=== PATIENT | female | born 2000 | race Caucasian/White ===

== ENCOUNTER 2023-02-16 11:44 | Emergency (ER) | payer MEDICAID, SELFPAY ==
[2023-02-16 11:48] VITALS: BP 116/66; PULSE 89; RESP 20; TEMP 36.6; O2SAT 98; BMI 21.8
[2023-02-16 12:01] VITALS: O2SAT 98
[2023-02-16] MEDS: TOPIRAMATE 100 MG TABLET 50 MG PO (12:34)
--- NOTE | 2023-02-16 12:36 | PC.NURSE ---
no seizure activity, pt did not bite tongue or urinate on self with seizure prior to ER arrival
--- NOTE | 2023-02-16 12:40 | ED.SEIZURE1 ---
HPI - Seizure General Chief Complaint: Seizure Stated Complaint: seizure Time Seen by Provider: 02/16/23 12:02 Source: patient Mode of arrival: ambulance Limitations: no limitations History of Present Illness HPI Narrative: this patient was brought to us from a care facility where she is in rehab for methamphetamine use. She's had seizure disorder, worked up extensively says she is approximately [age] years old and does have epilepsy. She's been on a number medications in the past but currently she is on Topamax 50 mg one tablet twice a day. She said she forgot to take a dose yesterday. Apparently she just seen her physician at that facility and was recently started today on gabapentin for fibromyalgia but shortly after seeing the physician at a rehab facility she had a short brief seizure. She does not have any complaints at this time. She has not used any illicit drugs recently. No alcohol use. She's not had any other medication adjustments recently and she felt fine. They are increasing at nighttime dose watermelons because she's had some sleep deprivation recently. Related Data Home Medications Medication Instructions Recorded Confirmed cariprazine 1.5 mg capsule 1.5 mg PO DAILY 02/16/23 02/16/23 (Vraylar) docusate sodium 100 mg capsule 100 mg PO BID 02/16/23 02/16/23 (Colace) gabapentin 300 mg capsule 300 mg PO TID 02/16/23 02/16/23 hydroxyzine pamoate 25 mg capsule 25 mg PO Q6H PRN anxiety 02/16/23 02/16/23 (Vistaril) prazosin 1 mg capsule 1 mg PO DAILY 02/16/23 02/16/23 quetiapine 150 mg tablet 150 mg PO DAILY 02/16/23 02/16/23 topiramate 50 mg tablet 50 mg PO BID 02/16/23 02/16/23 Allergies Allergy/AdvReac Type Severity Reaction Status Date / Time lamotrigine [From Lamictal] Allergy Severe Hives Verified 02/16/23 11:48 levetiracetam [From Keppra] AdvReac Severe states Verified 02/16/23 11:48 makes her crazy Exam Narrative Exam Narrative: GENERAL: Well hydrated, appears well, No obvious distress, Awake, Alert, Oriented x 3, Cognition intact HEENT: Normocephalic, No evidence of trauma, injury or infection, airway intact. Conjuntiva normal, no pallor or scleral icterus NECK: Supple, no meningeal irritation, full ROM, non-tender, No JVD. No tenderness to palpation over the cervical spine. CHEST: Symmetrical, no injury, non-tender, RESP: lungs are clear there is no chest wall sternal or clavicular tenderness to palpation. CARDIO: Normal rate and rhythm, No murmur, Rub, or ectopy during auscultation. ABD: NEURO: Neuro at baseline, No motor deficits, CN 2-12 Normal, Mentation inctact.good historian pleasant fully cooperative EXTREMITIES: No edema, good tissue perfusion, does have an abrasion over the right wrist and discomfort. Some limitation of motion. The forearm and elbow are normal. SKIN: No petechiae, purpura, or abnormal bruising, warm, dry, no rash Constitutional Vital Signs, click to edit/add: Last Vital Signs Temp 97.8 F 02/16/23 11:48 Pulse 89 02/16/23 11:48 Resp 20 02/16/23 11:48 BP 116/66 02/16/23 11:48 Pulse Ox 98 02/16/23 12:01 O2 Del Method Room Air 02/16/23 12:01 Course Vital Signs Vital signs: Vital Signs Temperature 97.8 F 02/16/23 11:48 Pulse Rate 89 02/16/23 11:48 Respiratory Rate 20 02/16/23 11:48 Blood Pressure 116/66 02/16/23 11:48 Pulse Oximetry 98 02/16/23 11:48 Oxygen Delivery Method Room Air 02/16/23 11:48 Temperature 97.8 F 02/16/23 11:48 Pulse Rate 89 02/16/23 11:48 Respiratory Rate 20 02/16/23 11:48 Blood Pressure 116/66 02/16/23 11:48 Pulse Oximetry 98 02/16/23 12:01 Oxygen Delivery Method Room Air 02/16/23 12:01 MDM - Seizure MDM Narrative Medical decision making narrative: this patient has had stable epilepsy and forgot a dose for her meds yesterday. We will give her one extra dose of Topamax here in the Emergency Room and then she is to resume her normal meds. She is observed until approximately 1:00 PM Discharge Plan Discharge Chief Complaint: Seizure Clinical Impression: Epileptic seizure Patient Disposition: Home, Self-Care Time of Disposition Decision: 12:43 Prescriptions / Home Meds: No Action gabapentin 300 mg capsule 300 mg PO TID topiramate 50 mg tablet 50 mg PO BID hydroxyzine pamoate [Vistaril] 25 mg capsule 25 mg PO Q6H PRN (Reason: anxiety) quetiapine 150 mg tablet 150 mg PO DAILY docusate sodium [Colace] 100 mg capsule 100 mg PO BID Vraylar 1.5 mg capsule 1.5 mg PO DAILY prazosin 1 mg capsule 1 mg PO DAILY Additional Instructions: resume previous medications Stand Alone Forms: Portal Instructions Referrals: Physician,Non-Staff, MD [Primary Care Provider] - 1 week
== END 2023-02-16 13:06 | disposition home or self-care (01) ==
PROVIDERS: Emergency Provider Emergency Medicine Emergency Medical Services
DX: G40.909 Epilepsy, unspecified, not intractable, without status epilepticus (principal); Z79.899 Other long term (current) drug therapy
CPT/HCPCS: 99283

== ENCOUNTER 2025-02-25 13:35 | Emergency (ER) | payer MEDICAID, SELFPAY ==
--- OUTSIDE RECORDS SUMMARY | 2025-02-10 20:55 | XMS_ITS | Encounter Summary ---
Author Organization [facility] Address [address], [address] [place] [address] Care Team Providers Care Welt Edge Rounder Name Role Phone Unavailable Primary Care Provider Unavailabl e Reason for Visit * Reason Comments Toe Injury Right great toe Encounter Details Date Type Department Care Team ([facility] st Contact Info) Description 02/10/2025 8:55 PM EDT - 02/10/2025 9:42 PM EDT Emergency [facility] Emergency Department [address] [place] [address] [phone] Gifty Hopper MD [address] [place] [address] Avulsion of toenail, initial encounter (Primary Dx) Discharge Disposition: Home or Self Care Social History Tobacco Use Types Packs/Day Years Used Date Smoking Tobacco: Every Day Cigarettes Smokeless Tobacco: Never Alcohol Use Standard Drinks/Week Comments Never 0 (1 standard drink = 0.6 oz pur e alcohol) AUDIT-C Answer Date Recorded Q1: How often do you have a drink containing alcohol? Never 02/02/2025 Q2: How many drinks containi ng alcohol do you have on a typical day when you are drinking? Patient does not drink Q3: How often do you have si x or more drinks on one occasion? Never 02/02/2025 Interpersonal Safety Domain Source: IP Abuse Scr eening Answer Date Recorded Physical abuse Denies 02/10/2025 Verbal abuse Denies 02/10/2025 Emotional abuse Denies 02/10/2025 Financial abuse Denies 02/10/2025 Sexual abuse Denies 02/10/2025 Comments Unknown Sex and Gender Information Value Date Recorded Sex Assigned at Not on file Legal Sex Female 7:15 PM EST Gender Identity Not on file Sexual Orientation Not on file documented as of this encounter Last Filed Vital Signs Vital Sign Reading Time Taken Comments Blood Pressure 127/73 02/10/2025 8:48 PM EDT Pulse 96 02/10/2025 8:48 PM EDT Temperature 36.5 C (97.7 F) 02/10/2025 8:48 PM EDT Respiratory Rate 18 02/10/2025 8:48 PM EDT Oxygen Saturation 99% 02/10/2025 8:48 PM EDT Inhaled Oxygen Concentration - - Weight 64 kg (141 lb) 02/10/2025 8:48 PM EDT Height 149.9 cm (4' 11 ) 02/10/2025 8:48 PM EDT Body Mass Index 28.48 02/10/2025 8:48 PM EDT documented in this encounter Discharge Instructions * Discharge Instructions* Gifty Hopper MD - 02/10/2025 9:28 PM EDT Try to avoid any further trauma to the toe. You may cut the toenail. I highly recommend trying to avoid cutting it too short. Try to keep the nail clean and dry. I do recommend follow-up with podiatry especially if pain worsens. * Attachments The following attachments cannot be sent through Care Everywhere. * Nail Avulsion (Mauritanian) documented in this encounter Medications at Time of Discharge QUEtiapine (SEROQUEL) 100 MG tablet Take 1 tablet by mouth 2 times daily cephALEXin (KEFLEX) 500 MG capsule Take 1 capsule by mouth 2 times daily for 7 days 14 capsule 02/10/2025 02/17/2025 documented as of this encounter Plan of Treatment Not on file documented as of this encounter Visit Diagnoses Diagnosis Avulsion of toenail, initial encounter- Primary documented in this encounter
[2025-02-25 13:39] VITALS: BP 115/87; PULSE 100; TEMP 36.4; O2SAT 99; BMI 31.3
--- OUTSIDE RECORDS SUMMARY | 2025-02-25 13:46 | XMS_ITS | Clinical Summary ---
Author Organization [facility] Address [id number] [address] [place] [address] Care Team Providers Care Networks Computer Consultant Name Role Phone Pcp, Not In System Primary Care Provider Unavail able Allergies Active Allergy Reactions Criticality Noted Date Comments Levetiracetam Other (See Comments) High 04/26/2020 Lamotrigine Hives 10/26/2022 Medications valACYclovir (VALTREX) 1000 mg tabletIndicatio ns:genital herpes simplex Take 1 tablet (1,000 mg total) by mouth in the morning. Indications: genital herpes. Active famotidine (PEPCID) 20 mg tabletIndicatio ns:heartburn Take 2 tablets (40 mg total) by mouth in the morning and 2 tablets (40 mg total) before bedtime. Indications: heartburn. Active lamoTRIgine (LaMICtal) 25 mg tablet Take 2 tablets (50 mg total) by mouth in the morning and 2 tablets (50 mg total) before bedtime. Active hydrOXYzine (VISTARIL) 100 mg capsule Take 1 capsule (100 mg total) by mouth 3 (three) times a day as needed for itching. Active topiramate (TOPAMAX) 50 mg tablet Take 1 tablet (50 mg total) by mouth in the morning and 1 tablet (50 mg total) before bedtime. 60 tablet 3 Active Additional Information Patient not taking.Reported on 09/19/2023 acetaminophen (TylenoL) 325 mg tablet Take 2 tablets (650 mg total) by mouth every 6 (six) hours as needed for pain. 30 tablet 4 Active ibuprofen (MOTRIN) 600 mg tablet Take 1 tablet (600 mg total) by mouth every 6 (six) hours as needed for pain. 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 Never tried to stop previously Tobacco use 04/26/2020 High-risk 04/26/2020 Hx of pre-eclampsia in prior , currentl y 04/26/2020 Pre-eclampsia 04/26/2020 Overview (04/26/2020): 04/24: 24 hour urine protein 436 Hx of chlamydia infection 04/26/2020 Family history of autism 04/26/2020 Overview (04/26/2020): Brother Chronic hepatitis C without hepatic coma 020 Overview (04/26/2020): 12/18/19: Quant 95,701 Drug use affecting in second trimester 12/26/2019 Overview (04/26/2020): + THC Generalized epilepsy 08/30/2014 Overview (04/26/2020): Ms. Billy is treated for her seizure disorder by Dr. Kitchen, at [facility]. Her AED is Oxcarbazepine 150 mg BID. Resolved Problems Problem Noted Date Diagnosed Date Resolved Date History of seizures 04/26/2020 04/26/20 20 Overview (04/26/2020): On Lamotrigine and Oxcarbazepine History of positive hepatitis C 04/26/2020 04/26/2020 Encounters Date Type Department Care Team Description 12/19/2024 2:20 PM EDT Office Visit [facility] [place] [address] [place] [phone] Amber Newell, COURT LIAISON-ASSISTANT THERAPY AIDE Patient left without being seen (Primary Dx) from Last 3 Months Immunizations No known immunizations Family History Medical History Relation Name Comments Hypertension Maternal Grandmother Cancer Neg Hx Diabetes Neg Hx Relation Name Status Comments Maternal Grandmother Social History Tobacco Use Types Packs/Day Years Used Date Smoking Tobacco: Every Day Vaping/E-cigarettes Smokeless Tobacco: Never Tobacco Cessation:Ready to Q uit: Not Asked; Counseling Given: Not Answered Alcohol Use Standard Drinks/Week Comments Not Currently 0 (1 standard drink = 0.6 oz pur e alcohol) Childcare Answer Date Recorded Childcare Unknown 04/24/2020 Employment Answer Date Recorded Employment Unknown 04/24/2020 Hunger Screening Answer Date Recorded Within the past 12 months we worried whether our food would run out before we got money to buy more. Never True 09/19/2023 Within the past 12 months th e food we bought just didn't last and we didn't have money to get more. Never True 09/19/2023 Purpose - Life Answer Date Recorded Purpose and direction in life Unknown Comments Unknown Sex and Gender Information Value Date Recorded Sex Assigned at Not on file Legal Sex Female 3:30 PM EST Gender Identity Not on file Sexual Orientation Not on file Last Filed Vital Signs Vital Sign Reading Time Taken Comments Blood Pressure 111/72 09/19/2023 3:00 PM EDT Pulse 96 09/19/2023 3:00 PM EDT Temperature 36.6 C (97.9 F) 09/19/2023 1:46 PM EDT Respiratory Rate 15 09/19/2023 2:30 PM EDT Oxygen Saturation 99% 09/19/2023 3:00 PM EDT Inhaled Oxygen Concentration - - Weight 52.4 kg (115 lb 9.6 oz) 09/19/2023 1:46 P M EDT Height 149.9 cm (4' 11 ) 09/19/2023 1:46 PM EDT Body Mass Index 23.35 09/19/2023 1:46 PM EDT Plan of Treatment Upcoming Encounters Date Type Department Care Team (Late st Contact Info) Description 03/01/2025 2:15 PM EDT Office Visit [facility] [address] [place] [phone] Quan Farris, OD [address] [place] [address] Health Maintenance Due Date Last Done Comments Depression Screening 2012 COVID-19 Vaccine (2023-2 5 season) 2024 03/19/2021, 12/19/2020 Adult BMI Screening 09/18/2024 09/19/2023 Tobacco Screening 09/18/2024 09/19/2023 Influenza Vaccine 02/19/2025 05/31/2009, , 05/01/2009 Pap Smear 06/11/2026 06/11/2023, 04/01/2021 DTaP,Tdap and Td Vaccines (8 - Td or Tdap) 08/06/2034 08/06/2024, 03/02/2013, 10/15/2005, Additional history exists Medical Devices Not on file Insurance [employer] [facility] [address] [address] Advance Directives * Full Code (Latest Code Status on File) Date Activated Date Inactivated Comments 01/09/2022 8:58 PM 01/10/2022 2:19 AM Care Teams Networks Computer Consultant Relationship Specialty Start Date End Date Pcp, Not In System ABRIL Espinosa [id number] PCP - General Family Medicine 09/19/23
--- OUTSIDE RECORDS SUMMARY | 2025-02-25 13:46 | XMS_ITS | Clinical Summary ---
Author Organization [facility] Address [address], [address] [place] [address] Care Team Providers Care Data Recovery Planner Name Role Phone Unavailable Primary Care Provider Unavailabl e Allergies Active Allergy Reactions Criticality Noted Date Comments Levetiracetam Other (See Comments) 03/25/2018 aggitation Lamotrigine Hives 10/27/2022 Medications topiramate (TOPAMAX) 50 MG tablet Take 1 tablet by mouth in the morning and 1 tablet in the evening. 60 tablet 3 Active Additional Information Patient taking differently: 100 mgOral2 TIMES DAILY, Reported on 02/10/2025 QUEtiapine (SEROQUEL) 100 MG tablet Take 1 tablet by mouth 2 times daily Active MV-Min-Fe Fum-FA-DHA ( 1 PO) Take by mouth Discontinu ed(LIST CLEANUP) cetirizine (ZYRTEC) 10 MG tablet Take 1 tablet by mouth daily Discontinu ed(LIST CLEANUP) metoclopramide (REGLAN) 10 MG tablet Take 1 tablet by mouth 4 times daily When necessary for nausea or vomiting 10 tablet 8 025 Discontinu ed(LIST CLEANUP) folic acid (FOLVITE) 1 MG tablet Take 1 tablet by mouth daily 025 Discontinu ed(LIST CLEANUP) sertraline (ZOLOFT) 25 MG tablet Take 1 tablet by mouth daily 30 tablet 3 1 025 Discontinu ed(LIST CLEANUP) cephALEXin (KEFLEX) 500 MG capsule Take 1 capsule by mouth 2 times daily for 7 days 14 capsule 5 025 Active Problems Problem Noted Date Diagnosed Date Breakthrough seizure 08/20/2020 Non-compliance 12/07/2019 Polysubstance abuse 12/07/2019 8 weeks gestation of 12/07/2019 Smoker 12/07/2019 (spontaneous vaginal delivery) 08/12/2018 Seizure disorder 08/12/2018 Encounters Date Type Department Care Team Description 02/10/2025 8:55 PM EDT - 02/10/2025 9:42 PM EDT Emergency [facility] Emergency Department [address] [place] [id number] Gifty Hopper MD Avulsion of toenail, initial encounter (Primary Dx) Discharge Disposition: Home or Self Care 02/02/2025 1:40 PM EDT - 02/02/2025 5:23 PM EDT Emergency [facility] Emergency Department [address] [place] [address] [id number] Terrence Bruno DO Breakthrough seizure (HCC) (Primary Dx) Discharge Disposition: Home or Self Care 02/02/2025 Travel from Last 3 Months Family History Medical History Relation Name Comments Other Father Other Mother Relation Name Status Comments Father Alive Mother Alive Social History Tobacco Use Types Packs/Day Years Used Date Smoking Tobacco: Every Day Cigarettes Smokeless Tobacco: Never Tobacco Cessation:Ready to Q uit: Not Asked; Counseling Given: Not Answered Alcohol Use Standard Drinks/Week Comments Never 0 [...] Mass Index 28.48 02/10/2025 8:48 PM EDT Plan of Treatment Health Maintenance Due Date Last Done Comments Depression Screen 2012 Meningococcal B vaccine (2 o f 2 - Trumenba SCDM 2-dose series) 05/07/2018 11/04/2017 Pneumococcal 0-49 years Vacc ine (1 of 2 - PCV) 02/10/2019 03/03/2001 Pap smear 04/01/2024 04/01/2021 Flu vaccine (#1) 01/19/2025 05/31/2009, 04/2009, 05/01/2009 COVID-19 Vaccine (1 - 2023-2 5 season) 2025 DTaP/Tdap/Td vaccine (8 - Td or Tdap) 08/06/2034 08/06/2024, 03/02/2013, 10/15/2005, Additional history exists Hepatitis B vaccine Completed 2000, 2000, 2000 Hib vaccine Completed 03/03/2001, 08/20, 2000, Additional history exists Polio vaccine Completed 10/15/2005, 02/19, 2000, Additional history exists Varicella vaccine Completed 03/15/2007, 09/20/2001 Meningococcal (ACWY) vaccine Completed 04/27/2016, 03/02/2013 HPV vaccine Completed 11/12/2016, 03/02/2013 Hepatitis A vaccine Completed 09/02/2018, 11/12/2016, 03/02/2013 HIV screen Completed 02/03/2022, 04/11/2018 Hepatitis C screen Completed 02/03/2022, 1 , 04/01/2021, Additional history exists Chlamydia/GC screen Discontinued 10/27/2022, 02/10/2022, 04/01/2021, Additional history exists Procedures Procedure Name Priority Date/Time Associated Diagnosis Comments URINE DRUG SCREEN STAT 02/02/2025 3:4 0 PM EDT URINALYSIS WITH REFLEX TO CULTURE STAT 02/02/2025 3:40 PM EDT XR CHEST 1 VIEW STAT 02/02/2025 2:31 PM EDT CK STAT 02/02/2025 1:59 PM EDT HCG, SERUM, QUALITATIVE STAT 02/02/2025 1:59 PM EDT BASIC METABOLIC PANEL STAT 02/02/2025 1:59 PM EDT CBC WITH AUTO DIFFERENTIAL STAT 02/02/2025 1:59 PM EDT EKG 12-LEAD Routine 02/02/2025 1:41 PM EDT C.TRACHOMATIS N.GONORRHOEAE DNA STAT 10/27/2022 11:53 AM EDT HIV SCREEN Routine 02/03/2022 9:39 AM EDT HEPATITIS PANEL, ACUTE Routine 02/03/2022 9:39 AM EDT SUPERINTENDENT STATIONS CYTOLOGY Routine 04/01/2021 9:34 AM EDT from Last 3 Months or Most Recently Relevant to Health Maintenance Results * Urinalysis with Reflex to Culture (02/02/2025 3:40 PM EDT) Color, UA Yellow Yellow 02/02/2025 3:40 PM EDT [facility] Turbidity UA Clear Clear 02/02/2025 3:40 PM EDT [facility] Glucose, Ur NEGATIVE NEGATIVE mg/dL 02/02/2025 3:40 PM EDT [facility] Bilirubin, Urine NEGATIVE NEGATIVE 02/02/2025 3:40 PM EDT [facility] Ketones, Urine NEGATIVE NEGATIVE mg/dL 02/02/2025 3:40 PM EDT [facility] Specific [place], UA 1.015 1.005 - 1.030 02/02/2025 3:40 PM EDT [facility] Urine Hgb NEGATIVE NEGATIVE 02/02/2025 3:40 PM EDT [facility] pH, Urine 6.5 5.0 - 8.0 02/02/2025 3:40 PM EDT [facility] Protein, UA NEGATIVE NEGATIVE mg/dL 02/02/2025 3:40 PM EDT [facility] Urobilinogen, Urine Normal 0.0 - 1.0 EU/dL 02/02/2025 3:40 PM EDT [facility] Nitrite, Urine NEGATIVE NEGATIVE 02/02/2025 3:40 PM EDT [facility] Leukocyte Esterase, Urine NEGATIVE NEGATIVE 02/02/2025 3:40 PM EDT [facility] Urine 02/02/2025 3:40 PM EDT 02/02/2025 3:43 PM EDT us Terrence Bruno DO URINE ORDERABLES Final Result [facility] [address] [place] [address], [facility] [phone] * Urine Drug Screen (02/02/2025 3:40 PM EDT) Amphetamine Screen, Ur NEGATIVE NEGATIVE 02/02/2025 3:40 PM EDT [facility] Comment:Cutoff: 1000 ng/mL Barbiturate Screen, Ur NEGATIVE NEGATIVE 02/02/2025 3:40 PM EDT [facility] Comment:Cutoff: 200 ng/ml Benzodiazepine Screen, Urine NEGATIVE NEGATIVE 02/02/2025 3:40 PM EDT [facility] Comment:Cutoff: 200 ng/ml Cocaine Metabolite, Urine NEGATIVE NEGATIVE 02/02/2025 3:40 PM EDT [facility] Comment:Cutoff: 300 ng/ml Methadone Screen, Urine NEGATIVE NEGATIVE 02/02/2025 3:40 PM EDT [facility] Comment:Cutoff: 300 ng/ml Opiates, Urine NEGATIVE NEGATIVE 02/02/2025 3:40 PM EDT [facility] Comment: Cutoff: 300 ng/ml Note: The Opiate screen is not intended to detect Oxycodone. Phencyclidine, Urine NEGATIVE NEGATIVE 02/02/2025 3:40 PM EDT [facility] Comment:Cutoff: 25 ng/ml Cannabinoid Scrn, Ur NEGATIVE NEGATIVE 02/02/2025 3:40 PM EDT [facility] Comment:Cutoff: 50 ng/ml Oxycodone Screen, Ur NEGATIVE NEGATIVE 02/02/2025 3:40 PM EDT [facility] Comment:Cutoff: 100 ng/ml Fentanyl, Ur NEGATIVE NEGATIVE 02/02/2025 3:40 PM EDT [facility] Comment:Cutoff: 5 ng/ml Test Information This method is a screening test to detect only these drug classes as part of a medical workup. Confirmatory testing by another method should be ordered if clinically indicated. 02/02/2025 3:40 PM EDT [facility] Urine (Urine) 02/02/2025 3:4 0 PM EDT 02/02/2025 3:44 PM EDT Terrence Bruno DO URINE ORDERABLES Final Result [facility] [address] [address], [facility] [phone] * XR CHEST 1 VIEW (02/02/2025 2:31 PM EDT) Anatomical Region Laterality Modality Chest Radio Fluoroscop y 02/02/2025 3:08 PM EDT Impressions 02/02/2025 3:09 PM EDT No acute process. Narrative 02/02/2025 3:09 PM EDT EXAMINATION: ONE XRAY VIEW OF THE CHEST 02/02/2025 2:30 pm COMPARISON: None. HISTORY: ORDERING SYSTEM PROVIDED HISTORY: Infiltrate TECHNOLOGIST PROVIDED HISTORY: Infiltrate FINDINGS: The lungs are without acute focal process. There is no effusion or pneumothorax. The cardiomediastinal silhouette is without acute process. The osseous structures are without acute process. Procedure Note Josh Mejía MD - 02/02/2025 EXAMINATION: ONE XRAY VIEW OF THE CHEST 02/02/2025 2:30 pm COMPARISON: None. HISTORY: ORDERING SYSTEM PROVIDED HISTORY: Infiltrate TECHNOLOGIST PROVIDED HISTORY: Infiltrate FINDINGS: The lungs are without acute focal process. There is no effusion or pneumothorax. The cardiomediastinal silhouette is without acute process.The osseous structures are without acute process. IMPRESSION: No acute process. us Terrence Bruno DO [facility] ORDERAB LES Final Result * (ABNORMAL) CBC with Auto Differential (02/02/2025 1:59 PM EDT) WBC 10.7 3.5 - 11.3 k/uL 02/02/2025 1:59 PM EDT [facility] RBC 4.21 3.95 - 5.11 m/uL 02/02/2025 1:59 PM EDT [facility] Hemoglobin 13.1 11.9 - 15.1 g/dL 02/02/2025 1:59 PM EDT [facility] Hematocrit 37.9 36.3 - 47.1 % 02/02/2025 1:59 PM EDT [facility] MCV 90.0 82.6 - 102.9 fL 02/02/2025 1:59 PM EDT [facility] MCH 31.1 25.2 - 33.5 pg 02/02/2025 1:59 PM EDT [facility] MCHC 34.6 28.4 - 34.8 g/dL 02/02/2025 1:59 PM EDT [facility] RDW 13.7 11.8 - 14.4 % 02/02/2025 1:59 PM EDT [facility] Platelets 320 138 - 453 k/uL 02/02/2025 1:59 PM EDT [facility] MPV 8.5 8.1 - 13.5 fL 02/02/2025 1:59 PM EDT [facility] NRBC Automated 0.0 0.0 per 100 WBC [facility]/02[facility] % 65 36 - 65 % 02/02/2025 1:59 PM EDT [facility] Lymphocytes % 18(L) 24 - 43 % 02/02/2025 1:59 PM EDT [facility] Monocytes % 6 3 - 12 % 02/02/2025 1:59 PM EDT [facility] Eosinophils % 8(H) 1 - 4 % 02/02/2025 1:59 PM EDT [facility] Basophils % 1 0 - 2 % 02/02/2025 1:59 [facility] Immature Granulocytes % 2(H) 0 % 02/02/2025 1:59 PM EDT [facility] Neutrophils Absolute 7.00 1.50 - 8.10 k/uL 02/02/2025 1:59 PM EDT [facility] Lymphocytes Absolute 1.95 1.10 - 3.70 k/uL 02/02/2025 1:59 PM EDT [facility] Monocytes Absolute 0.62 0.10 - 1.20 k/uL 02/02/2025 1:59 PM EDT [facility] Eosinophils Absolute 0.83(H) 0.00 - 0.44 k/uL 02/02/2025 1:59 PM EDT [facility] Basophils Absolute 0.11 0.00 - 0.20 k/uL 02/02/2025 1:59 PM EDT [facility] Immature Granulocytes Absolute 0.16 0.00 - 0.30 k/uL 02/02/2025 1:59 PM EDT [facility] Blood BLOOD SPECIMEN / Unknown 02/02/2025 1:59 PM EDT 02/02/2025 2:11 PM EDT Terrence Bruno DO HEMATOLOGY ORDERABLES Final Re sult Performing Organization Address [facility] Co de Phone Number [facility] [address] [place] [address], [facility] [phone] * HCG Qualitative, Serum (02/02/2025 1:59 PM EDT) Preg, Serum NEGATIVE NEGATIVE 02/02/2025 1:59 PM EDT [facility] Comment: Specimens with hCG levels near the threshold of the test (25 mIU/mL) may give a negative or indeterminate result. In such cases, another test should be performed with a new specimen in 48-72 hours. If early is suspected clinically in this setting, correlation with quantitative serum b-hCG level is suggested. Blood BLOOD SPECIMEN / Unknown 02/02/2025 1:59 PM EDT 02/02/2025 2:11 PM EDT us Terrence Bruno DO CHEMISTRY ORDERABLES Final Res ult Performing Organization Address [facility]/ZIP Co de Phone Number [facility] [address] [place] [address], [facility] [phone] * CK (02/02/2025 1:59 PM EDT) Total CK 67 26 - 192 U/L 02/02/2025 1:59 PM EDT [facility] Blood BLOOD SPECIMEN / Unknown 02/02/2025 1:59 PM EDT 02/02/2025 2:11 PM EDT us Terrence Bruno DO CHEMISTRY ORDERABLES Final Res ult [facility] [address] [place] [address], [facility] [phone] * (ABNORMAL) BMP (02/02/2025 1:59 PM EDT) Sodium 141 136 - 145 mmol/L 02/02/2025 1:59 PM EDT [facility] Potassium 3.7 3.7 - 5.3 mmol/L 02/02/2025 1:59 PM EDT [facility] Chloride 111(H) 98 - 107 mmol/L 02/02/2025 1:59 PM EDT [facility] CO2 18(L) 20 - 31 mmol/L 02/02/2025 1:59 PM EDT [facility] Anion Gap 12 9 - 16 mmol/L 02/02/2025 1:59 PM EDT [facility] Glucose 97 74 - 99 mg/dL 02/02/2025 1:59 PM EDT [facility] BUN 13 6 - 20 mg/dL 02/02/2025 1:59 PM EDT [facility] Creatinine 0.7 0.50 - 0.90 mg/dL 02/02/2025 1:59 PM EDT [facility] Est, Glom Filt Rate >90 >60 mL/min/1.7 3m2 02/02/2025 1:59 PM EDT [facility] Comment: These results are not intended for use in patients <18 years of age. eGFR results are calculated without a race factor using the 2020 CKD-EPI equation. Careful clinical correlation is recommended, particularly when comparing to results calculated using previous equations. The CKD-EPI equation is less accurate in patients with extremes of muscle mass, extra-renal metabolism of creatine, excessive creatine ingestion, or following therapy that affects renal tubular secretion. Calcium 8.7 8.6 - 10.4 mg/dL 02/02/2025 1:59 PM EDT [facility] Blood BLOOD SPECIMEN / Unknown 02/02/2025 1:59 PM EDT 02/02/2025 2:11 PM EDT Terrence Bruno DO CHEMISTRY ORDERABLES Final Res ult [facility] [address] [place] [address], [facility] [phone] * EKG 12 Lead (02/02/2025 1:41 PM EDT) Ventricular Rate 106 BPM [facility] Atrial Rate 106 BPM [facility] P-R Interval 134 ms [facility] QRS Duration 68 ms [facility] Q-T Interval 344 ms [facility] QTc Calculation (Bazett) 456 ms [facility] P [place] 52 degrees [facility] R [place] 40 degrees [facility] T [place] 46 degrees [facility] STA MUSE 02/02/2025 1:41 PM EDT Narrative PN STA MUSE - 02/05/2025 6:04 AM EDT Sinus tachycardia Otherwise normal ECG No previous ECGs available Procedure Note Shaneka Silva MD - 02/05/2025 Sinus tachycardia Otherwise normal ECG No previous ECGs available Terrence Bruno DO ECG ORDERABLES Final Result Performing Organization Address City/[facility]/ZIP Co de Phone Number [facility] ST[facility] * C.trachomatis N.gonorrhoeae DNA (10/27/2022 11:53 AM EDT) Specimen Description .CERVIX 10/27/2022 11:53 AM EDT [facility] C. trachomatis DNA NEGATIVE NEGATIVE 10/27/2022 11:53 AM EDT [facility] Comment: CHLAMYDIA TRACHOMATIS DNA not detected by nucleic acid amplification. This test is intended for medical purposes only and is not valid for the evaluation of suspected sexual abuse or for other forensic purposes. In certain contexts, culture may be required to meet applicable laws and regulations for diagnosis of C. trachomatis and N. gonorrhoeae infections. Per 2014 CDC recommendations, this test does not include confirmation of positive results by an alternative nucleic acid target. N. gonorrhoeae DNA NEGATIVE NEGATIVE 10/27/2022 11:53 AM EDT [facility] Comment: NEISSERIA GONORRHOEAE DNA not detected by nucleic acid amplification. This test is intended for medical purposes only and is not valid for the evaluation of suspected sexual abuse or for other forensic purposes. In certain contexts, culture may be required to meet applicable laws and regulations for diagnosis of C. trachomatis and N. gonorrhoeae infections. Per 2014 CDC recommendations, this test does not include confirmation of positive results by an alternative nucleic acid target. CERVICAL SWAB / Unknown 10/27/2022 11:53 AM EDT 10/27/2022 12:00 PM EDT Anabela Pinto PA-C MICROBIOLOGY - GENERAL ORDER SONI Final Result [facility] [address] [place] [address], [facility] [phone] [address], [facility] [phone] * (ABNORMAL) Hepatitis Panel, Acute (02/03/2022 9:39 AM EDT) Pathologist [facility] Hepatitis B Surface Ag NONREACTIVE NR 02/03/2022 5:01 PM EDT [facility] Hepatitis C Ab REACTIVE(A) NR 5:01 PM EDT [facility] [employer] Comment: The hepatitis C procedure used in our laboratory is a Chemiluminescent test specific for three recombinant HCV antigens. A negative anti-HCV result indicates that the antibodies to hepatitis C virus are not present at this time. Individuals with reactive anti-HCV should be considered infected and infectious until proven otherwise. Confirmation of all equivocal or reactive results is recommended by ordering HCV RNA by PCR. Results reported to the appropriate Health Department Hep B Core Ab, IgM NONREACTIVE NR 02/03 5:01 PM EDT [facility] Hep A IgM NONREACTIVE NR 02/03/2022 5:01 PM EDT [facility] [employer] Comment:[facility] [address] [place] [address] 02/03/2022 9:39 AM EDT 02/03/2022 10:29 AM EDT [facility] - 02/03/2022 5:01 PM EDT CALL doctor DONTE tel. [phone], please fax results to [phone] pending, 02/03/2022 13:30, by [facility] are pending, 02/03/2022 11:34, by [facility] pending, 02/03/2022 11:02, by [facility] us Sammy Chavez MD IMMUNOLOGY ORDERABLES Final R esult [facility] [address] [place] [address], [facility] [phone] [facility] [address] [place] [address], [facility] [phone] * HIV Screen (02/03/2022 9:39 AM EDT) HIV Ag/Ab NONREACTIVE NR 02/03/2022 7:50 PM EDT [facility] [employer] [facility] Comment: No laboratory evidence of HIV infection. If acute HIV infection is suspected, consider testing for HIV-1 RNA. [facility] [address] [place] [address] 02/03/2022 9:39 AM EDT 02/03/2022 10:29 AM EDT Narrative [facility] - 02/03/2022 7:50 PM EDT CALL doctor DONTE tel. [phone], please fax results to [phone] hiv & rpr pending, 02/03/2022 18:16, by [facility] pending, 02/03/2022 13:30, by [facility] are pending, 02/03/2022 11:34, by MCKAYLA pending, 02/03/2022 11:02, by [facility] us Sammy Chavez MD IMMUNOLOGY ORDERABLES Final R esult [facility] [address] [place] [address], [facility] [phone] [place] [address], [facility] [phone] * SUPERINTENDENT STATIONS Cytology (04/01/2021 9:34 AM EDT) Cytology Report INTERPRETATION Endocervical material, (Thin prep vial, Imaging-assisted review): Specimen Adequacy: Satisfactory for evaluation. -Endocervical/tra nsformation zone component is absent. Descriptive Diagnosis: Negative for intraepithelial lesion or malignancy. Computer Builder: Javier(ASCP) Electronically Signed Out av/04/07/2021 Source: 1: Endocervical material, (Thin prep vial, Imaging-assisted review) Clinical History Z01.419 Routine artillery officer exam without abnormal findings GYNECOLOGIC CYTOLOGY REPORT Patient Name: ANTONIA PANTOJA. [facility] Rec: [id number] Path Number: [id number] [facility] [employer] [facility] ANATOMIC PATHOLOGY [address] [place] [phone] [facility] 04/01/2021 9:34 AM EDT 04/02/2021 9:34 AM EDT us Lili [address] ROLLER ENGINEER - JEWELRY BEARING MAKER PATHOLOGY/CYTOLOGY OR DERABLES Final Result Performing Organization Address City/[facility]/ZIP Co de Phone Number [place] [address], [facility] [phone] from Last 3 Months or Most Recently Relevant to Health Maintenance Insurance [facility] MEDICAID Advance Directives * Full Code (Latest Code Status on File) Date Activated Date Inactivated Comments 08/20/2020 5:01 PM 08/22/2020 8:12 PM * Full Code Date Activated Date Inactivated Comments 08/20/2020 5:01 PM 08/20/2020 5:01 PM * Full Code Date Activated Date Inactivated Comments 08/20/2020 2:26 PM 08/20/2020 5:01 PM * Full Code Date Activated Date Inactivated Comments 12/07/2019 4:12 PM 12/08/2019 7:39 PM * Full Code Date Activated Date Inactivated Comments 08/12/2018 6:07 AM 08/14/2018 7:16 AM
--- OUTSIDE RECORDS SUMMARY | 2025-02-25 13:46 | XMS_ITS | Clinical Summary ---
Author Organization [facility] Healthcare Address [address] [place] [address] Care Team Providers Care Spray Cementer Name Role Phone Unavailable Primary Care Provider Unavailabl e Social History Tobacco Use Types Packs/Day Years Used Date Smoking Tobacco: Never Assessed Comments Unknown Sex and Gender Information Value Date Recorded Sex Assigned at Not on file Legal Sex Female 11:47 PM EDT Gender Identity Not on file Sexual Orientation Not on file Plan of Treatment Not on file
--- NOTE | 2025-02-25 13:51 | PC.NURSE ---
3 teeth pulled 5 days ago. pt worried about infection d/t increased pain and was unable to pay for abx that were prescribed
[2025-02-25] MEDS: HYDROCODONE/ACET 5-325 MG TABLET 1 TAB PO (14:12)
--- NOTE | 2025-02-25 14:43 | ED.GENADUL1 ---
HPI HPI - General Adult General Chief complaint: Dental/Oral Stated complaint: dental pain Time Seen by Provider: 02/25/25 13:42 Source: patient Mode of arrival: walk-in Limitations: no limitations History of Present Illness HPI narrative: Patient is a 25-year-old female presenting to the emergency department for medication refill and for evaluation of right lower jaw pain. Patient states she had a dental extraction 3 days ago. She states that since then, she has had worsening pain in the right lower molar extraction site. She was prescribed antibiotics, however cannot afford this. Other than pain, she has no other concerning symptoms. She denies any trouble breathing or swallowing. No fevers or chills. No chest pain or shortness of breath. She is requesting a refill on her topiramate for seizures. She has had no recent seizures. Related Data Home Medications ?Medication ?Instructions ?Recorded ?Confirmed cariprazine 1.5 mg capsule 1.5 mg PO DAILY 02/16/23 02/16/23 (Vraylar) docusate sodium 100 mg capsule 100 mg PO BID 02/16/23 02/16/23 (Colace) gabapentin 300 mg capsule 300 mg PO TID 02/16/23 02/16/23 hydroxyzine pamoate 25 mg capsule 25 mg PO Q6H PRN anxiety 02/16/23 02/16/23 (Vistaril) prazosin 1 mg capsule 1 mg PO DAILY 02/16/23 02/16/23 quetiapine 150 mg tablet 150 mg PO DAILY 02/16/23 02/16/23 topiramate 50 mg tablet 50 mg PO BID 02/16/23 02/16/23 Previous Rx's ?Medication ?Instructions ?Recorded penicillin V potassium 500 mg 500 mg PO Q6H 7 days #28 tabs 02/25/25 tablet topiramate 100 mg tablet (Topamax) 100 mg PO BID 1 month #60 tabs 02/25/25 Allergies Allergy/AdvReac Type Severity Reaction Status Date / Time lamotrigine (From Lamictal) Allergy Severe Hives Verified 02/25/25 13:39 levetiracetam (From Keppra) AdvReac Severe states Verified 02/25/25 13:39 makes her crazy Opioid HPI Opioid Management Most Recent Opioid Data: Last Pain Scale 8 Today, 14:12 Last MAR Pain Assessment Today, 14:12 Review of Systems ROS Status of ROS 10 or more systems reviewed and unremarkable except as noted in history and below PFSH PFSH Social History Little interest or pleasure in doing things: not at all Feeling down, depressed, or hopeless: not at all Exam Narrative Exam Narrative: CONSTITUTIONAL: Well-appearing, answering questions and following commands appropriately SKIN: Was warm and dry. EYES: Sclerae white. EARS, NOSE, THROAT: There is mild tenderness to palpation in the right lower molar, at the site of her prior wisdom tooth extraction. There is no purulent drainage, gingivitis, or bleeding. The mandible/jaw/face are without swelling. She has no trismus. Uvula is midline without peritonsillar abscess. Speaking with normal voice. No tenderness or swelling throughout the neck. No tenderness of the floor the mouth RESPIRATORY: Nonlabored respirations CARDIOVASCULAR: Normal rate and regular rhythm. There is no S3, S4, murmur, rub. GASTROINTESTINAL: Abdomen is nondistended. MUSCULOSKELETAL: No peripheral edema. NEUROLOGIC: Patient is awake and alert. Facies were symmetrical. Constitutional Vital Signs, click to edit/add: Last Vital Signs Temp 97.5 F L 02/25/25 13:39 Pulse 100 H 02/25/25 13:39 Resp 14 02/25/25 13:39 BP 115/87 02/25/25 13:39 Pulse Ox 99 02/25/25 13:39 O2 Del Method Room Air 02/25/25 13:39 Course Vital Signs Vital signs: Vital Signs Temperature 97.5 F L 02/25/25 13:39 Pulse Rate 100 H 02/25/25 13:39 Respiratory Rate 14 02/25/25 13:39 Blood Pressure 115/87 02/25/25 13:39 Pulse Oximetry 99 02/25/25 13:39 Oxygen Delivery Method Room Air 02/25/25 13:39 Temperature 97.5 F L 02/25/25 13:39 Pulse Rate 100 H 02/25/25 13:39 Respiratory Rate 14 02/25/25 13:39 Blood Pressure 115/87 02/25/25 13:39 Pulse Oximetry 99 02/25/25 13:39 Oxygen Delivery Method Room Air 02/25/25 13:39 Medical Decision Making [facility] Narrative Medical decision making narrative: Patient is a 25-year-old female presenting to the emergency department for evaluation of pain at the site of a wisdom tooth extraction 3 days ago. Her vitals are within normal limits. She is afebrile and hemodynamically stable. Patient appears well on examination. There is some mild tenderness palpation of the extraction site, however there does not appear to be any significant ENT infection or evidence of abscess. Her airway is intact without trismus, neck/facial/tongue/lip swelling, or any other concerning features. She was given a dose of [place] for pain. I do believe the patient is stable for discharge at this time. They were instructed to follow up with her PCP and dentist for further care. Return precautions were given including any new or worsening symptoms. They were given a prescription for penicillin VK 500 mg every 6 hours x 7 days for a possible early extraction site infection. She also requested a refill on her topiramate for seizures. She was given a prescription for Topamax 100 mg twice daily x 30 days. Patient understands and agrees to the plan. FINAL IMPRESSION: #Acute pain and possible early infection of the right lower molar dental extraction site #Acute encounter for medication refill DISPOSITION: Discharged home CONDITION: Good Discharge Plan Discharge Chief Complaint: Dental/Oral Clinical Impression: Toothache Patient Disposition: Home, Self-Care Time of Disposition Decision: 13:58 Condition: Good Mode of Transportation: Private Vehicle Prescriptions / Home Meds: New topiramate [Topamax] 100 mg tablet 100 mg PO BID 30 Days Qty: 60 0RF penicillin V potassium 500 mg tablet 500 mg PO Q6H 7 Days Qty: 28 0RF No Action gabapentin 300 mg capsule 300 mg PO TID topiramate 50 mg tablet 50 mg PO BID hydroxyzine pamoate [Vistaril] 25 mg capsule 25 mg PO Q6H PRN (Reason: anxiety) quetiapine 150 mg tablet 150 mg PO DAILY docusate sodium [Colace] 100 mg capsule 100 mg PO BID Vraylar 1.5 mg capsule 1.5 mg PO DAILY prazosin 1 mg capsule 1 mg PO DAILY Print Language: Mauritanian Instructions: Toothache (ED) Referrals: Physician,Non-Staff, MD [Primary Care Provider] - 1 week Discharge Date/Time: 02/25/25 14:16
== END 2025-02-25 14:16 | disposition home or self-care (01) ==
PROVIDERS: Emergency Provider Student in an Organized Health Care Education/Training Program
DX: K08.89 Other specified disorders of teeth and supporting structures (principal); R56.9 Unspecified convulsions; Z79.899 Other long term (current) drug therapy
CPT/HCPCS: 99283